=== PATIENT | female | born 1985 | race Caucasian/White ===

== ENCOUNTER 2019-09-08 13:48 | Emergency (ER) | payer SELFPAY ==
[2019-09-08] MEDS ORDERED: CLINDAMYCIN 900 MG/D5W RTU 900 MG/50 ML RTUPB IV ONE ×2 (14:40→17:00)
--- NOTE | 2019-09-08 14:42 | ER Document Report ---
ED Medical Screen (RME) - General Chief Complaint: Hand Injury Stated Complaint: LEFT HAND INJURY Time Seen by Provider: 09/08/19 14:34 Mode of Arrival: Ambulatory Information source: Patient Notes: 33-year-old female patient presents emergency department chief complaint of laceration to the dorsal surface of her left hand. Patient reports 2 days ago she punched a mirror. She has now reporting significantly decreased range of motion specifically in her third and fourth digits. She does have a strong radial pulse, cap refill less than 3 seconds, normal sensation distal to injury, no active bleeding noted at this time. Will obtain labs and sent for x-ray to evaluate for possible retained foreign body. I have greeted and performed a rapid initial assessment of this patient. A comp rehensive ED assessment and evaluation of the patient, analysis of test results and completion of the medical decision making process will be conducted by additional ED providers. I have specifically instructed the patient or family members with the patient to immediately return to any nursing staff should anything change in the patient's condition or with their chief complaint. TRAVEL OUTSIDE OF THE [place] IN LAST 30 DAYS: No - Related Data Allergies/Adverse Reactions: acetaminophen [From Darvocet-N 100] Allergy (Verified 09/08/19 14:31) codeine Allergy (Verified 09/08/19 14:31) propoxyphene [From Darvocet-N 100] Allergy (Verified 09/08/19 14:31) Past Medical History - Social History Chew tobacco use (# tins/day): No Frequency of alcohol use: Rare Drug Abuse: None Past Surgical History: Reports: Hx Gynecologic Surgery - right ovary, Hx Oral Surgery, Hx Tonsillectomy Physical Exam - Vital signs Vitals: Temp Pulse Resp BP Pulse Ox 98.9 F 69 16 132/104 H 96 09/08/19 13:58 09/08/19 13:58 09/08/19 13:58 09/08/19 13:58 09/08/19 13:58 Course - Vital Signs Vital signs: Temp Pulse Resp BP Pulse Ox 98.9 F 69 16 132/104 H 96 09/08/19 13:58 09/08/19 13:58 09/08/19 13:58 09/08/19 13:58 09/08/19 13:58
[2019-09-08 15:05] LABS: ABSOLUTE BASOPHILS # (AUTO) 0.1 10^3/uL (0.0-0.2); ABSOLUTE LYMPHOCYTES (AUTO) 1.4 10^3/uL (0.5-4.7); ABSOLUTE MONOCYTES (AUTO) 0.4 10^3/uL (0.1-1.4); ABSOLUTE NEUT (AUTO) 6.5 10^3/uL (1.7-8.2); BASOPHILS % (AUTO) 0.8 % (0-2); EOSINOPHILS % (AUTO) 0.1 % (0-6); HEMATOCRIT 40.9 % (36.0-47.0); LYMPHOCYTES % (AUTO) 17.2 % (13-45); MEAN CORPUSCULAR HGB CONC 34.2 g/dL (32.0-36.0); MEAN CORPUSCULAR VOLUME 93 fl (80-97); MONOCYTES % (AUTO) 5.1 % (3-13); PLATELET COUNT 261 10^3/uL (150-450); RED BLOOD COUNT 4.39 10^6/uL (3.72-5.28); RED CELL DISTRIBUTION WIDTH 13.3 % (11.5-14.0); SEGMENTED NEUTROPHILS % (AUTO) 76.8 % (42-78); TOTAL CELLS COUNTED % (AUTO) 100 %; WHITE BLOOD COUNT 8.4 10^3/uL (4.0-10.5)
[2019-09-08 15:26] LABS: ALBUMIN 4.5 g/dL (3.5-5.0); ALKALINE PHOSPHATASE 78 U/L (38-126); ANION GAP 10 (5-19); ASPARTATE AMINO TRANSFERASE 21 U/L (14-36); BILIRUBIN,DIRECT 0.3 mg/dL (0.0-0.4); BILIRUBIN,TOTAL 0.5 mg/dL (0.2-1.3); BLOOD UREA NITROGEN 11 mg/dL (7-20); CALCIUM 9.6 mg/dL (8.4-10.2); CARBON DIOXIDE 25 mmol/L (22-30); CHLORIDE 105 mmol/L (98-107); GLUCOSE 102 mg/dL (75-110); POTASSIUM 3.8 mmol/L (3.6-5.0); TOTAL PROTEIN 7.7 g/dL (6.3-8.2)
[2019-09-08 15:27] LABS: C-REACTIVE PROTEIN < 5.0 mg/L (<10.0)
[2019-09-08 15:41] LABS: ERYTHROCYTE SEDIMENTATION RATE 11 mm/hr (0-20)
--- NOTE | 2019-09-08 16:13 | RADIOLOGY REPORT (SQ) ---
EXAM DESCRIPTION: HAND LEFT 3 VIEWS COMPLETED DATE/TIME: 09/08/2019 3:17 pm REASON FOR STUDY: eval for infection vs foreign body, punched glass COMPARISON: None. EXAM PARAMETERS: NUMBER OF VIEWS: Three views. TECHNIQUE: AP, lateral and oblique radiographic images acquired of the left hand. LIMITATIONS: None. FINDINGS: MINERALIZATION: Normal. BONES: No acute fracture or dislocation. No worrisome bone lesions. JOINTS: No effusions. SOFT TISSUES: Soft tissue laceration of the dorsal medial left hand overlying the 5th metacarpal. Th ere is no definite radiopaque foreign body however there is a somewhat angular appearing opacity best seen on AP view, which may reflect a skin flap overlying a wound or a poorly visualized shard of gla ss. OTHER: No other significant finding. IMPRESSION: No fracture or dislocation of the left hand. Soft tissue laceration of the dorsal medial left hand overlying the 5th metacarpal. There is no definite radiopaque foreign body however there is a somewhat angular appearing opacity best seen on AP view, which may reflect a skin flap overlying a wound or a poorly visualized shard of glass. Please note that most household glass is poorly radi opaque and can be difficult to visualize by x-ray. TECHNICAL DOCUMENTATION: JOB ID: [id number] [email or web address]- All Rights Reserved Reading location - IP/workstation name: [email or web address]
[2019-09-08] MEDS ORDERED: DIPH/PERTUSS(ACELL)/TETANUS VAC/PF 0.5 ML SYR (>=10YO) IM ONE (17:12)
--- NOTE | 2019-09-08 18:49 | ER Document Report ---
ED General - General Chief Complaint: Laceration Stated Complaint: LEFT HAND INJURY Time Seen by Provider: 09/08/19 14:34 Mode of Arrival: Ambulatory Information source: Patient TRAVEL OUTSIDE OF THE [place] IN LAST 30 DAYS: No - HPI Notes: Patient complains of left hand pain. She states little over 2 days ago she punched a mirror and anger and since that time she has had left hand pain. This pain is mainly on the dorsum. She states she did suffer a laceration and some bleeding at the time of punching the mirror. She states she did wash it out afterwards and does not believe there is any type of foreign body in it. She states since the punching a mirror she is unable to extend her left ring finger. She denies any other injuries. The hand pain is severe it is worse with movement and better with rest. It does radiate up the left arm. It is sharp. - Related Data Allergies/Adverse Reactions: acetaminophen [From Darvocet-N 100] Allergy (Verified 09/08/19 14:31) codeine Allergy (Verified 09/08/19 14:31) propoxyphene [From Darvocet-N 100] Allergy (Verified 09/08/19 14:31) Past Medical History - General Information source: Patient - Social History Smoking Status: Current Every Day Smoker Chew tobacco use (# tins/day): No Frequency of alcohol use: Rare Drug Abuse: None Family History: Reviewed & Not Pertinent Patient has suicidal ideation: No Patient has homicidal ideation: No Past Surgical History: Reports: Hx Gynecologic Surgery - right ovary, Hx Oral Surgery, Hx Tonsillectomy Review of Systems - Review of Systems Constitutional: denies: Chills, Fever Cardiovascular: denies: Chest pain, Palpitations Respiratory: denies: Cough, Short of breath Gastrointestinal: denies: Diarrhea, Vomiting -: Yes All other systems reviewed and negative Physical Exam - Vital signs Vitals: Temp Pulse Resp BP Pulse Ox 98.9 F 69 16 132/104 H 96 09/08/19 13:58 09/08/19 13:58 09/08/19 13:58 09/08/19 13:58 09/08/19 13:58 Interpretation: Hypertensive - General General appearance: Appears well, Alert - HEENT Head: Normocephalic, Atraumatic Eyes: Normal Pupils: PERRL - Respiratory Respiratory status: No respiratory distress Chest status: Nontender Breath sounds: Normal Chest palpation: Normal - Cardiovascular Rhythm: Regular Heart sounds: Normal auscultation Murmur: No - Abdominal Inspection: Normal Distension: No distension Bowel sounds: Normal Tenderness: Nontender Organomegaly: No organomegaly - Back Back: Normal, Nontender - Extremities General upper extremity: Other - Upper extremity exam is remarkable for a large laceration to the dorsum of the left hand. This laceration is approximately 6 cm. There is no active signs of infection. It is tender but otherwise it is not warm or indurated. No significant surrounding erythema. Patient has no ability to extend the left ring finger against resistance. She appears to have an obvious left extensor tendon injury. General lower extremity: Normal inspection, Nontender, Normal color, Normal ROM, Normal temperature, Normal weight bearing. No: Laina's sign - Neurological Neuro grossly intact: Yes Cognition: Normal Orientation: AAOx4 Tanner Coma Scale Eye Opening: Spontaneous Tanner Coma Scale Verbal: Oriented Luan Coma Scale Motor: Obeys Commands Tanner Coma Scale Total: 15 Speech: Normal Motor strength normal: LUE, RUE, LLE, RLE Sensory: Normal - Psychological Associated symptoms: Normal affect, Normal mood - Skin Skin Temperature: Warm Skin Moisture: Dry Skin Color: Normal Course - Re-evaluation Re-evalutation: 09/08/19 18:52 Dr. Carrero saw the patient in the emergency department. She does appear to have an obvious extensor tendon injury to the left ring finger. Patient will see Dr. collins in the office this week to be scheduled for repair. He has asked that I place the patient on antibiotics, pain medicine, and place an ulnar gutter splint. Due to the age of the wound it was not repaired with sutures. 09/08/19 18:55 - Vital Signs Vital signs: Temp Pulse Resp BP Pulse Ox 98.9 F 69 16 132/104 H 96 09/08/19 13:58 09/08/19 13:58 09/08/19 13:58 09/08/19 13:58 09/08/19 13:58 - Laboratory Result Diagrams: 09/08/19 14:49 09/08/19 14:50 - Diagnostic Test Radiology reviewed: Image reviewed, Reports reviewed Procedures - Immobilization Left Hand Time completed: 18:53 Pre-Proc Neuro Vasc Exam: Normal, Abnormal - Left extensor tendon injury Immobilizer type: Ulnar Performed by: RN Post-Proc Neuro Vasc Exam: Abnormal, Unchanged from pre-exam Alignment checked and good: Yes Notes: 09/08/19 18:53 Patient has an obvious left extensor tendon injury prior to mobilization and this continues after immobilization. Discharge - Discharge Clinical Impression: Laceration of extensor muscle, fascia and tendon of left ring finger at forearm level, initial encounter Condition: Stable Disposition: HOME, SELF-CARE Instructions: Oral Narcotic Medication ([facility]), Tetanus Immunization Given ([facility]), Soap Cleansing ([facility]), Tendon Laceration ([facility]), Tendon Laceration Referral ([facility]) Additional Instructions: Please call Dr. Cross as soon as possible to arrange follow-up for this week. Prescriptions: Cephalexin Monohydrate [Keflex 500 mg Capsule] 500 mg PO QID #20 capsule Hydrocodone/Acetaminophen [[place] 5-325 mg Tablet] 1 tab PO Q6 PRN 3 Days #12 tablet PRN Reason: Forms: Return to Work Referrals: PALMA CROSS DO [ACTIVE STAFF] - 09/10/19 9:00 am
[2019-09-08] MEDS ORDERED: HYDROCODONE/ACETAMINOPHEN 5-325 MG (6 TAB/ER DISP) PO PRN (19:57)
[2019-09-08 20:08] VITALS: BP 154/83
== END 2019-09-08 20:05 | disposition home or self-care (01) ==
LOC: ER 13:48
DX: S56.426A Laceration of extensor muscle, fascia and tendon of left ring finger at forearm level, initial encounter (principal); W25.XXXA Contact with sharp glass, initial encounter; F17.200 Nicotine dependence, unspecified, uncomplicated; Z88.6 Allergy status to analgesic agent; Z23 Encounter for immunization
CPT/HCPCS: 99283; 90471; 96365; 36415; 87040; 85025; 85652; 86140; 80053; 73130; 90715; 29125; J3490

== ENCOUNTER 2019-09-13 10:48 | Day surgery (SDC) | payer SELFPAY ==
[~2019-09-13 10:48] MED LIST: CEFAZOLIN SODIUM 2 GM in DEXTROSE 5%-WATER 100 ML IV PRN
[2019-09-13] MEDS ORDERED: RINGERS SOLUTION,LACTATED 1,000 ML IV PRN (12:13)
[2019-09-13] MEDS ORDERED: RINGERS SOLUTION,LACTATED 1,000 ML IV ONE (12:15)
[2019-09-13] MEDS ORDERED: SCOPOLAMINE HYDROBROMIDE 1.5 MG PATCH.TD72 ONE (12:56)
[2019-09-13] MEDS ORDERED: ALBUTEROL SULFATE 0.083% NEB 2.5 MG/3 ML AMPUL NEB ONE (12:56)
[2019-09-13] MEDS ORDERED: MIDAZOLAM 2 MG/2 ML INJ ONE ×2 (12:56→15:25)
[2019-09-13] MEDS ORDERED: PROPOFOL INJ 200 MG/20 ML VIAL IV ONE ×2 (15:25→19:39)
[2019-09-13] MEDS ORDERED: FENTANYL CITRATE INJ/PF 100 MCG/2 ML AMPUL ONE (15:25)
[2019-09-13] MEDS ORDERED: LIDOCAINE 1% INJ-PF (10 MG/ML) 30 ML SDV ONE (15:35)
[2019-09-13] MEDS ORDERED: KETAMINE HCL INJ 500 MG/10 ML VIAL ONE (15:42)
[2019-09-13] MEDS ORDERED: BACITRACIN INJ 50,000 UNIT VIAL ONE (16:01)
[2019-09-13] MEDS ORDERED: FENTANYL CITRATE INJ/PF 100 MCG/2 ML AMPUL IV PRN ×3 (16:20)
[2019-09-13] MEDS ORDERED: MEPERIDINE HCL/PF INJ 25 MG/1 ML DISP.SYRIN IV PRN (16:20)
[2019-09-13] MEDS ORDERED: DIPHENHYDRAMINE HCL 50 MG/ML VIAL IV PRN (16:20)
[2019-09-13] MEDS ORDERED: MORPHINE SULFATE 10 MG/ML INJ IV PRN (16:20)
[2019-09-13] MEDS ORDERED: PROMETHAZINE HCL INJ 25 MG/1 ML VIAL IV PRN (16:20)
[2019-09-13] MEDS ORDERED: HYDROMORPHONE HCL INJ/PF 2 MG/ML AMPULE IV PRN (17:01)
--- NOTE | 2019-09-13 17:02 | Discharge Summary ---
Discharge Summary (SDC) - Discharge Final Diagnosis: Extensor tendon laceration Date of Surgery: 09/13/19 Discharge Date: 09/13/19 Condition: Good Forms: ASU Anesthesia D/C Instruction, Discharge POC-Surgical Service Treatment or Instructions: Schedule Follow Up w/ Dr. Sony Cross @ [facility] for [facility] to be seen in 10-14 days or as scheduled [place]: [place]: [place]: Ice and elevate Keep splint clean/dry/intact, do not remove. If your fingers become numb please unwrap the Miguel wrap but leave the splint in place, if the sensation does not return within 30 minutes please return to the emergency department. Please use ibuprofen (Motrin or Advil) 600-800 mg every 8 hours as needed for pain or fever DO NOT TAKE w/ TORADOL may use once TORADOL complete. You may also use acetaminophen (Tylenol) 1000 mg every 4-6 hours as needed for pain or fever. Please be aware that many medications contain acetaminophen, do not exceed a total of 1000 mg of acetaminophen every 6 hours. If ibuprofen and acetaminophen are not sufficient for your pain you may take the Percocet/Palmetto. Please be aware that the Percocet/Palmetto does contain Tylenol. Stool softener of choice when on pain medication. USE OF [id number] IBUPROFEN: Ibuprofen (Advil, Nuprin, Medipren, Motrin IB) is a medication for fever and pain control. In addition, it has anti- inflammatory effects which may be beneficial, especially in the treatment of injuries. It's best to take ibuprofen with food. Persons with ulcer disease or allergy to aspirin should notify their physician of this before taking ibuprofen. Ibuprofen can be given every four to six hours, for a total of four doses daily. Age Pain or fever dose Antiinflammatory dose 6-8 yr 200 mg (1 tab) 200 mg (1 tab) 9-11 yr 200 mg (1 tab) 200-400 mg (1-2 tab) 11-14 yr 200-400 mg (1-2 tab) 400 mg (2 tab) 15-adult 400 mg (2 tab) 600 mg (3 tab) ORAL NARCOTIC MEDICATION: You have been given a prescription for pain control. This medication is a narcotic. It's best taken with food, as nausea can result if taken on an empty stomach. Don't operate machinery or drive within six hours of taking this medicat ion. Do not combine this medicine with alcohol, or with any medication which can cause sedation (such as cold tablets or sleeping pills) unless you get permission from the physician. Narcotics tend to cause constipation. If possible, drink plenty of fluids and eat a diet high in fiber and fruits. Please be aware that prescription narcotics also have the potential for abuse. People become addicted to these medications because of the general sense of wellbeing that they induce. This feeling along with a significant reduction in tension, anxiety, and aggression provides a stimulating seductive quality to these drugs. Once your pain is under control, we encourage you to discard your unused narcotics. Prescriptions: Oxycodone HCl/Acetaminophen [Percocet 5-325 mg Tablet] 1 tab PO Q6 PRN #25 tab PRN Reason: Referrals: SONY CROSS DO [ACTIVE STAFF] - Discharge Diet: As Tolerated Respiratory Treatments at Home: Deep Breathing/Coughing, Incentive Spirometer Discharge Activity: No Lifting Over 10 Pounds, No Lifting/Push/Pulling Report the Following to Your Physician Immediately: Fever over 101 Degrees, Unusual Bleeding, Redness, Swelling, Warmth, Increased Soreness
--- NOTE | 2019-09-13 17:04 | Operative Report ---
Operative Report DATE OF SURGERY: 09/13/19 PREOPERATIVE DIAGNOSIS: Extensor tendon laceration left hand POSTOPERATIVE DIAGNOSIS: Same OPERATION: Extensor tendon repair zone V EDC ring finger SURGEON: PALMA CROSS ANESTHESIA: LMAC COMPLICATIONS: None ESTIMATED BLOOD LOSS: Minimal PROCEDURE: Indication for above procedure: 33-year-old female who sustained a laceration to her hand. After laceration she was unable to extend her digits. She had delayed follow-up at the emergency room while in emergency room she was evaluated and started on antibiotics but wound was not closed given chronicity. Upon follow-up at my office patient had extension lag of the fourth and fifth digits we discussed treatment option including operative versus nonoperative intervention after discussing risk benefits joint decision was made to fuse operative treatment. Procedure In Detail: Patient was seen and evaluated in the preoperative holding area. The LEFT upper extremity was initialized and marked. Patient received 2g of Ancef IV for bacterial prophylaxis. Patient was taken back to the operative room where transferred to the operative table and placed under anesthesia. Once they were adequately anesthetized a nonsterile tourniquet was placed on the upper extremity. Local block was performed utilizing 24 cc of 1% lidocaine without epinephrine. A surgical team debriefing was performed ensuring all instrumentation was available, the surgical procedure was discussed with possible concerns reviewed. The upper extremity was prepped with Betadine and draped in a sterile fashion. A timeout was done identifying correct patient, procedure and extremity everyone in attendance agree with this and verbalized no concerns. The extremity was exsanguinated the tourniquet was inflated to 250 mmHg. Laceration was extended proximally and distally. Blunt dissection was performed. A small peripheral veins were coagulated with bipolar cautery. The extensor tendons were then exposed there was full laceration of the EDC to the ring finger. No evidence of disruption of the middle or small finger. The proximal distal end of the EDC was then reapproximated with a running Silverskiold suture utilizing 4-0 FiberWire. The juncture to the fifth digit was also repaired utilizing [id number] 4-0 FiberWire. Wound was then copiously irrigated with normal saline. Skin edges were debrided excising any nonviable skin. Tourniquet was then deflated. A peripheral veins were coagulated with bipolar cautery. Skin was closed with interrupted 4-0 nylon suture. Patient was placed in a volar resting splint with the MCP joint at 20 degrees of hyperextension IP joint free. Sponge counts, instrument counts, needle counts were correct. Patient was then awoken from anesthesia. Transferred from the operating room table to the operating room stretcher. There was no intraoperative complications patient tolerated procedure well stable to PACU. Postop plan: Patient follow in the office in 2 weeks at which point we will place her in a splint and begin active range of motion of the IP joints but no MP joint range of motion. We will consider setting her up for occupational therapy at that time.
[2019-09-13] MEDS ORDERED: KETOROLAC TROMETHAMINE INJ/PF 30 MG/1 ML SDV ONE (17:18)
[2019-09-13] MEDS ORDERED: ACETAMINOPHEN 1,000 MG/100 ML RTUPB IV ONE (17:18)
[2019-09-13] MEDS ORDERED: OXYCODONE-ACETAMINOPHEN 5-325 MG TABLET ONE (18:01)
[2019-09-13 19:10] VITALS: BP 115/75
== END 2019-09-13 19:00 | disposition home or self-care (01) ==
LOC: OROUT 10:48
PROVIDERS: ATTEND Orthopaedic Surgery
DX: S66.325A Laceration of extensor muscle, fascia and tendon of left ring finger at wrist and hand level, initial encounter (principal); S61.412A Laceration without foreign body of left hand, initial encounter; W25.XXXA Contact with sharp glass, initial encounter; X58.XXXA Exposure to other specified factors, initial encounter; Z88.5 Allergy status to narcotic agent; F17.210 Nicotine dependence, cigarettes, uncomplicated
CPT/HCPCS: 81025; 01810; 26418; J2250; J3490 ×3; J0690; J3010; J1885; J7060; J2704; J0131; 1810